=== PATIENT | female | born 1960 | race Caucasian/White ===

== ENCOUNTER 2016-09-16 23:28 | Emergency (ER) | payer OTHER ==
[~2016-09-16] VITALS: Ht 165.1 cm; Wt 126.4 kg
[~2016-09-16 23:28] MED LIST: ACET-784 PO; ATOR10TA84 PO; FERR-89 PO; METF500T4 PO; VITAD50000 PO
[2016-09-16] MEDS ORDERED: LOSA50TA37 PO (23:32)
[2016-09-16] MEDS ORDERED: ASPI81 PO (23:32)
[2016-09-16] MEDS ORDERED: AMLO-511 PO (23:32)
[2016-09-16] MEDS ORDERED: ALBU8.5H IH (23:32)
[2016-09-16] MEDS ORDERED: LORA10TA7 PO (23:32)
[2016-09-16 23:38] LABS: GLUCOSE,POINT OF CARE 146 MG/DL (70-110)
[2016-09-17] MEDS ORDERED: METOCLOPRAMIDE HCL 5 MG/ML 2 ML VIAL IVP ONE (00:15)
[2016-09-17] MEDS ORDERED: SODIUM CHLORIDE 0.9% 1,000 ML IV ONE (00:15)
[2016-09-17] MEDS ORDERED: VALPROATE SODIUM 500 MG in DEXTROSE 5%-WATER 50 ML IV ONE (00:15)
[2016-09-17] MEDS ORDERED: KETOROLAC TROMETHAMINE 30 MG/ML VIAL IVP ONE (00:15)
[2016-09-17] MEDS ORDERED: ONDANSETRON HCL 4 MG/2 ML VIAL IVP ONE (00:15)
[2016-09-17 00:45] LABS: BASOPHILS # (AUTO) 0.04 K/uL (0.00-0.20); BASOPHILS % (AUTO) 0.7 % (0.0-2.0); EOSINOPHILS # (AUTO) 0.03 K/uL (0.00-0.70); EOSINOPHILS % (AUTO) 0.61 % (1.0-6.0); HEMATOCRIT 38.7 % (36-46); HEMOGLOBIN 12.9 g/dL (12.0-16.0); LYMPHOCYTES % (AUTO) 18.1 % (22.0-44.0); MEAN CORPUSCULAR HEMOGLOBIN 30.3 pg (26.0-34.0); MEAN CORPUSCULAR HGB CONC 33.3 G/dL (31.0-37.0); MEAN CORPUSCULAR VOLUME 91 fL (80-100); MONOCYTES # (AUTO) 0.1 K/uL (0.1-1.0); MONOCYTES % (AUTO) 2.3 % (2.0-9.0); NEUTROPHILS # (AUTO) 4.1 K/uL (1.8-7.7); NEUTROPHILS % (AUTO) 78.3 % (40.0-70.0); PLATELET COUNT (AUTO) 183 K/uL (150-450); RED BLOOD CELL COUNT(AUTO) 4.25 MIL/uL (4.00-5.20); RED CELL DISTRIBUTION WIDTH 14.7 % (11.5-14.5); WHITE BLOOD COUNT (AUTO) 5.2 K/uL (4.5-11.0)
[2016-09-17 00:49] LABS: APPEARANCE,URINE CLEAR (CLEAR); GLUCOSE, URINE (UA) NEGATIVE (NEGATIVE); KETONES,URINE NEGATIVE (NEGATIVE); LEUKOCYTE ESTERASE ,URINE SMALL (NEGATIVE); OCCULT BLOOD,URINE MODERATE (NEGATIVE); PROTEIN,URINE NEGATIVE (NEGATIVE)
[2016-09-17 00:50] LABS: ADD UA MICROSCOPIC YES
[2016-09-17 00:55] LABS: SQUAMOUS EPITHELIAL CELL,UR Moderate /LPF (None Seen)
[2016-09-17 00:56] LABS: RBC,URINE 0-2 /HPF (0-2)
[2016-09-17 00:59] LABS: ANION GAP 11 mmol/L (8-16); CALCIUM, TOTAL 8.3 mg/dL (8.8-10.5); CARBON DIOXIDE 27 mmol/L (22-29); CHLORIDE 105 mmol/L (98-107); GLOMERULAR FILTR. RATE CALC > 60 mL/min (>60); SODIUM SERUM 143 mmol/L (136-145); UREA NITROGEN, BLOOD 12 mg/dL (7-18)
[2016-09-17 01:02] LABS: ALANINE AMINOTRANSFERASE 34 U/L (12-78); ALBUMIN 3.8 g/dL (3.4-5.0); ASPARTATE AMINOTRANSFERASE 24 U/L (15-37); BILIRUBIN,TOTAL 0.5 mg/dL (0.1-1.0); TOTAL PROTEIN, SERUM 7.8 g/dL (6.4-8.2)
[2016-09-17 01:49] VITALS: BP 128/84
== END 2016-09-17 02:12 | disposition home or self-care (01) ==
LOC: EMS 23:30
DX: G43.909 Migraine, unspecified, not intractable, without status migrainosus (principal); F17.210 Nicotine dependence, cigarettes, uncomplicated; E11.9 Type 2 diabetes mellitus without complications; E78.00 Pure hypercholesterolemia, unspecified; I10 Essential (primary) hypertension; Z79.82 Long term (current) use of aspirin
CPT/HCPCS: 36415; 80053; 81001; 82962; 85025; 87086; 96365; 96375; 99284; 99406; J1885; J2405; J2765; J3490; J7030; J7060; 99285

== ENCOUNTER 2018-04-09 14:08 | Emergency (ER) | payer OTHER ==
[~2018-04-09] VITALS: Ht 157.5 cm; Wt 127.3 kg
[~2018-04-09 14:08] MED LIST changes: -ACET-784 PO; +ALBU8.5H8 IH; +AMLO-511 PO; +ASPI81 PO; +LORA10TA7 PO; +LOSA50TA64 PO; +METF-960 PO; -METF500T4 PO; -VITAD50000 PO
[2018-04-09 15:23] LABS: BASOPHILS % (AUTO) 0.9 % (0.0-2.0); EOSINOPHILS % (AUTO) 1.8 % (1.0-6.0); HEMATOCRIT 37.5 % (36-46); HEMOGLOBIN 12.6 g/dL (12.0-16.0); LYMPHOCYTES # (AUTO) 1.4 K/uL (1.0-4.8); LYMPHOCYTES % (AUTO) 26.4 % (22.0-44.0); MEAN CORPUSCULAR HEMOGLOBIN 30.4 pg (26.0-34.0); MEAN CORPUSCULAR HGB CONC 33.5 G/dL (31.0-37.0); MEAN CORPUSCULAR VOLUME 91 fL (80-100); MONOCYTES # (AUTO) 0.2 K/uL (0.1-1.0); MONOCYTES % (AUTO) 3.8 % (2.0-9.0); NEUTROPHILS # (AUTO) 3.6 K/uL (1.8-7.7); NEUTROPHILS % (AUTO) 67.1 % (40.0-70.0); PLATELET COUNT (AUTO) 181 K/uL (150-450); RED BLOOD CELL COUNT(AUTO) 4.13 MIL/uL (4.00-5.20); RED CELL DISTRIBUTION WIDTH 14.9 % (11.5-14.5)
[2018-04-09 15:45] LABS: ANION GAP 8 mmol/L (8-16); CALCIUM, TOTAL 8.7 mg/dL (8.8-10.5); CARBON DIOXIDE 27 mmol/L (22-29); CHLORIDE 104 mmol/L (98-107); CREATININE 0.71 mg/dL (0.60-1.30); GLOMERULAR FILTR. RATE CALC > 60 mL/min (>60); GLUCOSE,RANDOM 130 mg/dL (70-110); SODIUM SERUM 139 mmol/L (136-145); UREA NITROGEN, BLOOD 11 mg/dL (7-18)
[2018-04-09] MEDS ORDERED: LORazepam 2 MG/ML VIAL IVP ONE (15:45)
[2018-04-09] MEDS ORDERED: ONDANSETRON HCL 4 MG/2 ML VIAL IVP ONE (15:45)
[2018-04-09 15:48] LABS: B-TYPE NATRIURETIC PEPTIDE 71 pg/mL (0-100)
[2018-04-09 16:10] LABS: ALANINE AMINOTRANSFERASE 62 U/L (12-78); ALBUMIN 3.5 g/dL (3.4-5.0); ALKALINE PHOSPHATASE 101 U/L (46-116); ASPARTATE AMINOTRANSFERASE 52 U/L (15-37); BILIRUBIN,TOTAL 0.5 mg/dL (0.1-1.0); CREATINE KINASE, TOTAL ONLY 192 U/L (26-192); TOTAL PROTEIN, SERUM 7.6 g/dL (6.4-8.2)
[2018-04-09 16:22] LABS: APPEARANCE,URINE CLEAR (CLEAR); BILIRUBIN,URINE NEGATIVE (NEGATIVE); GLUCOSE, URINE (UA) NEGATIVE (NEGATIVE); KETONES,URINE NEGATIVE (NEGATIVE); LEUKOCYTE ESTERASE ,URINE NEGATIVE (NEGATIVE); NITRATE,URINE NEGATIVE (NEGATIVE); OCCULT BLOOD,URINE MODERATE (NEGATIVE); PROTEIN,URINE NEGATIVE (NEGATIVE)
[2018-04-09 16:36] LABS: BACTERIA,URINE Rare /HPF (None Seen); SQUAMOUS EPITHELIAL CELL,UR Few /LPF (None Seen); WBC,URINE 0-2 /HPF (0-5)
[2018-04-09 17:00] VITALS: BP 126/51
== END 2018-04-09 17:15 | disposition home or self-care (01) ==
LOC: EMS 14:08
DX: F41.9 Anxiety disorder, unspecified (principal); M62.830 Muscle spasm of back; R07.9 Chest pain, unspecified; J45.909 Unspecified asthma, uncomplicated; E11.9 Type 2 diabetes mellitus without complications; E78.00 Pure hypercholesterolemia, unspecified; I10 Essential (primary) hypertension; G43.909 Migraine, unspecified, not intractable, without status migrainosus; F17.210 Nicotine dependence, cigarettes, uncomplicated; Z79.82 Long term (current) use of aspirin; Z79.84 Long term (current) use of oral hypoglycemic drugs
CPT/HCPCS: 36415; 71045; 80053; 81001; 82550; 83880; 84484; 85025; 93005; 96374; 96375; 99285; J2060; J2405

== ENCOUNTER 2019-03-27 15:15 | Emergency (ER) | payer OTHER ==
[~2019-03-27] VITALS: Ht 165.1 cm; Wt 118.2 kg
[~2019-03-27 15:15] MED LIST changes: -AMLO-511 PO; -FERR-89 PO; +FLUT16H NASAL; +GABA-531 PO; -LORA10TA7 PO; +LOSA25TA41 PO; -LOSA50TA64 PO; +NAPR-1025 PO
[2019-03-27] MEDS ORDERED: LORA10TA7 PO (15:41)
[2019-03-27] MEDS ORDERED: NITR0.4T52 SL (15:41)
[2019-03-27] MEDS ORDERED: SUMA25TA9 PO (15:41)
[2019-03-27] MEDS ORDERED: FURO40 PO (15:41)
[2019-03-27 16:13] LABS: GLUCOSE,POINT OF CARE 118 MG/DL (70-110)
[2019-03-27 18:07] VITALS: BP 132/65
== END 2019-03-27 18:15 | disposition home or self-care (01) ==
LOC: EMS 15:17
DX: J20.9 Acute bronchitis, unspecified (principal); J45.909 Unspecified asthma, uncomplicated; E11.9 Type 2 diabetes mellitus without complications; E78.00 Pure hypercholesterolemia, unspecified; I10 Essential (primary) hypertension; G43.909 Migraine, unspecified, not intractable, without status migrainosus; F17.210 Nicotine dependence, cigarettes, uncomplicated; Z98.890 Other specified postprocedural states; Z79.899 Other long term (current) drug therapy; Z79.82 Long term (current) use of aspirin

== ENCOUNTER 2020-02-17 14:31 | Emergency (ER) | payer OTHER ==
[~2020-02-17] VITALS: Ht 165.1 cm; Wt 113.6 kg
[~2020-02-17 14:31] MED LIST changes: +ASPI-728 PO; -ASPI81 PO; +FURO40 PO; -GABA-531 PO; +LORA10TA7 PO; +LOSA25TA21 PO; -LOSA25TA41 PO; -NAPR-1025 PO; +NITR0.4T52 SL; +SUMA25TA9 PO
[2020-02-17] MEDS ORDERED: METO25XL PO (14:44)
[2020-02-17] MEDS ORDERED: ACETAMINOPHEN 500 MG TABLET PO ONE (15:00)
[2020-02-17 15:31] LABS: COVID AG,FIA SOURCE NASOPHARYNGEAL
[2020-02-17 15:50] LABS: RAPID GROUP A STREP NEGATIVE (NEGATIVE)
[2020-02-17 15:56] LABS: INFLUENZA TYPE A NEGATIVE FOR TYPE A (NEGATIVE); INFLUENZA TYPE B NEGATIVE FOR TYPE B (NEGATIVE)
[2020-02-17 16:32] VITALS: BP 147/83
== END 2020-02-17 16:49 | disposition home or self-care (01) ==
LOC: EMS 14:36
DX: J02.9 Acute pharyngitis, unspecified (principal); Z20.828 Contact with and (suspected) exposure to other viral communicable diseases
CPT/HCPCS: 71045; 87426; 87430; 87804; 99284; U0003

== ENCOUNTER 2020-05-30 12:11 | Emergency (ER) | payer OTHER ==
[~2020-05-30] VITALS: Ht 175.3 cm; Wt 122.7 kg
[~2020-05-30 12:11] MED LIST changes: -ALBU8.5H8 IH; -ASPI-728 PO; -ATOR10TA84 PO; +AZIT-104 PO; -FLUT16H NASAL; -FURO40 PO; +GUAIF10 PO; -LORA10TA7 PO; -LOSA25TA21 PO; -METF-960 PO; -NITR0.4T52 SL; +PRED-409 PO; +PRED10 PO; +PRED20 PO; -SUMA25TA9 PO
[2020-05-30 12:18] VITALS: BP 104/56
[2020-05-30] MEDS ORDERED: SUMA25TA9 PO (13:07)
[2020-05-30] MEDS ORDERED: ATOR10TA84 PO (13:07)
[2020-05-30] MEDS ORDERED: FURO40 PO (13:07)
[2020-05-30] MEDS ORDERED: FLUT16H NASAL (13:07)
[2020-05-30] MEDS ORDERED: LOSA25TA21 PO (13:07)
[2020-05-30] MEDS ORDERED: METF-960 PO (13:07)
[2020-05-30] MEDS ORDERED: ALBU8HFA IH (13:07)
[2020-05-30] MEDS ORDERED: METO25XL PO (13:07)
[2020-05-30] MEDS ORDERED: BENZ100C68 PO (13:07)
[2020-05-30] MEDS ORDERED: LORA10TA7 PO (13:07)
[2020-05-30] MEDS ORDERED: ASPI-1227 PO (13:07)
== END 2020-05-30 13:58 | disposition home or self-care (01) ==
LOC: EMS 12:15
DX: Z20.822 Contact with and (suspected) exposure to COVID-19 (principal); J45.909 Unspecified asthma, uncomplicated; E11.9 Type 2 diabetes mellitus without complications; E78.00 Pure hypercholesterolemia, unspecified; I10 Essential (primary) hypertension; G43.909 Migraine, unspecified, not intractable, without status migrainosus; F17.210 Nicotine dependence, cigarettes, uncomplicated; Z90.89 Acquired absence of other organs; Z79.84 Long term (current) use of oral hypoglycemic drugs
CPT/HCPCS: 99281; 99406; Z7502